=== PATIENT | female | born 1980 | race African-American/Black ===

== ENCOUNTER 2019-12-12 01:58 | Emergency (ER) | payer SELFPAY ==
[2019-12-12] MEDS ORDERED: ACETAMINOPHEN 325 MG TABLET (FP) PO ONE (03:13)
[2019-12-12 03:16] VITALS: BP 112/71; TEMP 97.9; BMI 22.6
[2019-12-12] MEDS ORDERED: ACETAMINOPHEN 325 MG TABLET (FP) ONE (03:21)
--- NOTE | 2019-12-12 03:28 | PDOC ---
History of Present Illness - General Chief Complaint: Head/Neck problem Stated Complaint: FALL History Source: Patient, Spouse Exam Limitations: Intoxication - History of Present Illness Initial Comments: 12/12/19 03:25 39-year-old female with a past medical history who is presenting after having a fall. Patient with her half survivor history. Patient states that she was out celebrating her 39th birthday, went home, and is unsure of what happened after that. The patients states that she Shiela gotten up go to the bathroom while he was sleeping. He states that he noticed blood in her for head and called EMS. The patient denies LOC, numbness, tingling, weakness, vision changes, palpitations, CP, SOB, neck pain, abdominal pain. Past History - Past Medical History Allergies/Adverse Reactions: Allergies Allergy/AdvReac Type Severity Reaction Status Date / Time No Known Allergies Allergy Verified 12/12/19 03:16 COPD: No - Immunization History Immunization Up to Date: (unknown) - Psycho Social/Smoking Cessation Hx Smoking History: Never smoked Hx Alcohol Use: Yes (occosional) Drug/Substance Use Hx: No Review of Systems - Review of Systems Able to Perform ROS?: Yes Comments:: 12/12/19 03:26 GENERAL/CONSTITUTIONAL: + for fall and intoxication. No fever or chills. No weakness. HEAD, EYES, EARS, NOSE AND THROAT: No change in vision. No ear pain or di scharge. No sore throat. CARDIOVASCULAR: No chest pain, palpitations, or lightheadedness. RESPIRATORY: No cough, wheezing, shortness of breath, or hemoptysis. GASTROINTESTINAL: No abdominal pain, nausea, vomiting, diarrhea, or constipation. GENITOURINARY: No dysuria, frequency, hematuria, or change in urination. MUSCULOSKELETAL: No joint or muscle swelling or pain. No neck or back pain. SKIN: No rash or lesions. NEUROLOGIC: No headache, numbness, tingling, focal weakness, loss of consciousness, or change in strength/sensation. Is the patient limited Kiswahili proficient: No *Physical Exam - Vital Signs Last Vital Signs Temp Pulse Resp BP Pulse Ox 97.9 F 96 H 20 112/71 100 12/12/19 03:10 12/12/19 03:10 12/12/19 03:10 12/12/19 03:10 12/12/19 03:10 - Physical Exam 12/12/19 03:26 GENERAL: Well developed, well nourished. Awake and alert. No acute distress. HEENT: Normocephalic. Hearing grossly normal. Moist mucous membranes. PERRLA, EOMI. No conjunctival pallor. Sclera are non-icteric. NECK: Supple. Full ROM. No JVD. No midline spinal tenderness. CARDIOVASCULAR: Regular rate and rhythm. No murmurs, rubs, or gallops. PULMONARY: No evidence of respiratory distress. Lungs clear to auscultation bilaterally. No wheezing, rales, or rhonchi. ABDOMINAL: Soft. Non-tender. Non-distended. No rebound or guarding. GENITOURINARY: No CVA tenderness bilaterally. MUSCULOSKELETAL: Normal range of motion at all joints. No bony deformities or tenderness. EXTREMITIES: No cyanosis. No clubbing. No edema. No calf tenderness or swelling. SKIN: Warm and dry. Normal capillary refill. No rashes. No jaundice. NEUROLOGICAL: Alert, awake, appropriate. Cranial nerves 2-12 intact. Normal speech. Gait is slightly ataxic. Moving all 4 extremities. PSYCHIATRIC: Cooperative. Good eye contact. Appropriate mood and affect. Procedures - Laceration/Wound Repair Right Upper Medial Frontal Wound Length: to 2.5 cm Wound Explored: clean Wound's Depth, Shape: superficial, irregular Irrigated w/ Saline: Yes Betadine Prep: No Anesthesia: 1% Lidocaine (2) Wound Debrided: minimal Wound Repaired With: Sutures Suture Size/Type: 6:0 Number of Sutures: 8 Layer Closure: No Sterile Dressing Applied: No (pt instructed; states they will shower at home) Splint Applied: No Sling Applied: No ED Treatment Course - LABORATORY CBC & Chemistry Diagram: 12/12/19 04:00 12/12/19 04:00 - RADIOLOGY Radiology Studies Ordered: Category Date Time Status CERVICAL SPINE CT W/O CONTR [CT] Stat CT Scan 12/12/19 03:[address] WITHOUT CONTRAST [CT] Stat CT Scan 12/12/19 03:17 Ordered Medical Decision Making - Medical Decision Making 12/12/19 03:27 39F with no PMH who presents to the ER after having a fall while intoxicated. CT's ordered. Pt states that her "tubes are tied" and she does not need to give us a urine sample. Giving tylenol for pain relief and will suture the laceration. Pt well appearing otherwise. 12/12/19 05:03 CTH and C-spine negative. Pt sutured with 8 stitches. Tetanus updated. Will d/c with PCP f/u. Discharge - Discharge Information Problems reviewed: Yes Clinical Impression/Diagnosis: Laceration Condition: Good Disposition: HOME - Admission No - Follow up/Referral - Patient Discharge Instructions Patient Printed Discharge Instructions: DI for Suture Removal Additional Instructions: Please return in 3-5 days for suture removal. Please return to the ER if you notice any spreading redness, discharge, pus, or other drainage from the incision. Please return if you develop any fever, chills, nausea, vomiting, or headaches. Please follow up with your primary care doctor in 1-3 days. Please return to the ER if you have any signs or symptoms of chest pain, shortness of breath, uncontrollable fever, chills, nausea, vomiting, numbness, tingling, or weakness in any part of your body, changes in vision, or slurred speech. On the CT scan of your neck, there was mention that your thyroid is slightly enlarged. Please follow that up with your primary care doctor. - Post Discharge Activity
--- NOTE | 2019-12-12 03:41 | PDOC ---
Attending Attestation - Resident Resident Name: Italo Orta - ED Attending Attestation I have performed the following: I have examined & evaluated the patient, The case was reviewed & discussed with the resident, I agree w/resident's findings & plan - HPI HPI: 12/12/19 04:38 Pt was celebrating her bday when she accidentally fell and injured herself. - Physicial Exam PE: 12/12/19 05:21 Agree with resident exam. Pt has a diagonal laceration in the center of her forehead. - Medical Decision Making 12/12/19 04:[address] completed [address] CT cspine Both appear normal 12/12/19 05:19 Pt has normal labs; alcohol level was 231 on arrival. She was here 2.5 hrs. Alcohol level is likely under 180 at discharge. Pt is ambulating easi;ly and properly. She is accompanied by her who will truck driver flatbed her home. 12/12/19 19:47 Resident placed 8 sutures in the forehead 6.0 interrupted, as we have no plastic surgeons on staff
[2019-12-12 04:31] LABS: BASO % 0.7 % (0-2.0); EOS % 2.3 % (0-4.5); HEMATOCRIT 40.1 % (32.4-45.2); HEMOGLOBIN 13.1 GM/dL (10.7-15.3); LYMPH % 53.6 % (8-40); MCH 23.9 pg (25.7-33.7); MCHC 32.8 g/dl (32.0-36.0); MEAN CELL VOLUME 73.1 fl (80-96); MEAN PLT VOLUME 8.8 fl (7.5-11.1); MONO % 7.8 % (3.8-10.2); NEUT % 35.6 % (42.8-82.8); PLATELET COUNT 189 K/MM3 (134-434); RBC 5.48 M/mm3 (3.60-5.2); RDW 15.2 % (11.6-15.6); WHITE BLOOD COUNT 5.5 K/mm3 (4.0-10.0)
[2019-12-12 04:43] LABS: INR 0.82 (0.83-1.09); PROTHROMBIN TIME (PATIENT) 9.7 SEC (9.7-13.0)
[2019-12-12] MEDS ORDERED: DIPHTH,PERTUSS(ACELL),TET 0.5 ML DISP.SYRIN IM ONE ×2 (05:00→05:08)
[2019-12-12 05:01] LABS: ALBUMIN 3.7 g/dl (3.4-5.0); ALK PHOS 85 U/L (45-117); ANION GAP 5 MMOL/L (8-16); BILIRUBIN,TOTAL 0.2 mg/dL (0.2-1); BLOOD UREA NITROGEN 8.7 mg/dL (7-18); CALCIUM 7.8 mg/dL (8.5-10.1); CHLORIDE 113 mmol/L (98-107); CO2 25 mmol/L (21-32); CREATININE 0.6 mg/dL (0.55-1.3); GLUCOSE,RANDOM 88 mg/dL (74-106); POTASSIUM 4.1 mmol/L (3.5-5.1); SGOT/AST 23 U/L (15-37); SGPT/ALT 19 U/L (13-61); SODIUM 143 mmol/L (136-145)
[2019-12-12 05:18] VITALS: PULSE 88
--- NOTE | 2019-12-12 09:50 | EKG ---
Test Reason : Blood Pressure : / mmHG Vent. Rate : 085 BPM Atrial Rate : 085 BPM P-R Int : 186 ms QRS Dur : 086 ms QT Int : 390 ms P-R-T Axes : 067 082 066 degrees QTc Int : 464 ms SINUS RHYTHM WITH OCCASIONAL PREMATURE VENTRICULAR COMPLEXES OTHERWISE NORMAL ECG NO PREVIOUS ECGS AVAILABLE Confirmed by Jose Luis Weldon MD ([id number]) on 12/12/2019 9:49:58 AM Referred By: Confirmed By:Jose Luis Weldon MD
== END 2019-12-12 05:20 | disposition home or self-care (01) ==
LOC: JER 01:58
PROC: 0HQ1XZZ Repair Face Skin, External Approach (ICD-10-PCS; principal; 2019-12-12)
PROC: 3E0234Z Introduction of Serum, Toxoid and Vaccine into Muscle, Percutaneous Approach (ICD-10-PCS; 2019-12-12)
DX: S01.81XA Laceration without foreign body of other part of head, initial encounter (principal); W18.39XA Other fall on same level, initial encounter; Y93.89 Activity, other specified; Y92.009 Unspecified place in unspecified non-institutional (private) residence as the place of occurrence of the external cause
CPT/HCPCS: 36415; 70450-TC; 72125-TC; 80053; 80307; 82550; 84484; 85025; 85610; 86850; 86900; 86901; 90715; 93005; 93010; 99285-25